=== PATIENT | male | born 1995 | race Caucasian/White ===

== ENCOUNTER 2021-10-19 17:25 | Emergency (ER) | payer SELFPAY ==
[~2021-10-19 17:25] MED LIST: AUGMENTIN 875-1 EACH PO; BACTROBAN OINT22 GM EXT; IBUPROFEN600 MG PO
== END 2021-10-19 21:50 | disposition left against medical advice (07) ==
LOC: ER1 17:25
DX: M25.561 Pain in right knee (principal); X50.9XXA Other and unspecified overexertion or strenuous movements or postures, initial encounter
CPT/HCPCS: 73564; 99283